=== PATIENT | female | born 1950 | race Caucasian/White ===

== ENCOUNTER → 2017-03-21 | Outpatient (CLI) | payer OTHER | LOC: FIMAGING 13:55 | PROVIDERS: ATTEND Family Medicine | DX: Z13.820 Encounter for screening for osteoporosis (principal) ==

== ENCOUNTER → 2017-03-31 | Outpatient (CLI) | payer OTHER | LOC: FIMAGING 07:35 | PROVIDERS: ATTEND Radiology Diagnostic Radiology | DX: I83.891 Varicose veins of right lower extremity with other complications (principal); I87.2 Venous insufficiency (chronic) (peripheral) ==

== ENCOUNTER 2017-07-25 06:52 | Day surgery (SDC) | payer OTHER ==
[2017-07-25] MEDS ORDERED: NS 1,000 ML IV ONE (07:09)
[2017-07-25] MEDS ORDERED: ceFAZolin 2 GM/SWFI 2 GM/20 ML SYR IVP ONE (07:09)
[2017-07-25] MEDS ORDERED: NALOXONE HCL 0.4 MG/ML INJ ONE (07:13)
[2017-07-25] MEDS ORDERED: MIDAZOLAM 2 MG/2 ML VIAL ONE (07:14)
[2017-07-25] MEDS ORDERED: fentaNYL 100 MCG/2 ML INJ ONE (07:14)
[2017-07-25] MEDS ORDERED: FLUMAZENIL 0.5 MG/5 ML MDV IVP ONE (07:14)
[2017-07-25] MEDS ORDERED: SODIUM TETRADECYL SULFATE 3% 2 ML VIAL IV ONE (08:09)
[2017-07-25] MEDS ORDERED: LIDO/EPI 1% **for epidural** 30 ML SDV ONE (08:09)
[2017-07-25] MEDS ORDERED: PROMETHAZINE HCL 25 MG/ML INJ ONE (08:19)
[2017-07-25] MEDS ORDERED: HYDROCODONE/APAP 5/325 TAB PO PRN (11:19)
[2017-07-25] MEDS ORDERED: ONDANSETRON 4 MG/2 ML VIAL IVP PRN (11:20)
[2017-07-25] MEDS ORDERED: ONDANSETRON DISINTEGRATING 4 MG TAB PO PRN (11:20)
[2017-07-25] MEDS ORDERED: NS 1,000 ML IV SCH (11:30)
[2017-07-25] MEDS ORDERED: IBUPROFEN 200 MG TAB PO ONE (11:30)
[2017-07-25 12:07] VITALS: BP 95/65; RESP 11; O2SAT 93
== END 2017-07-25 13:15 | disposition home or self-care (01) ==
LOC: FIMAGING 06:52
PROVIDERS: ATTEND Radiology Diagnostic Radiology
PROC: 065P3ZZ Destruction of Right Saphenous Vein, Percutaneous Approach (ICD-10-PCS; principal; 2017-07-25 10:59)
PROC: 06BP3ZZ Excision of Right Saphenous Vein, Percutaneous Approach (ICD-10-PCS; principal; 2017-07-25 10:59)
DX: I83.811 Varicose veins of right lower extremity with pain (principal)
CPT/HCPCS: J0690; J2250; J2310; J2550; J3010

== ENCOUNTER → 2019-02-15 | Outpatient (CLI) | payer OTHER | LOC: EMCIMAGING 13:59 | PROVIDERS: ATTEND Family Medicine | DX: Z12.31 Encounter for screening mammogram for malignant neoplasm of breast (principal) | CPT/HCPCS: 77067-PN ==